=== PATIENT | male | born 1990 | race African-American/Black ===

== ENCOUNTER 2019-06-23 07:49 | Observation (INO) ==
[2019-06-23] MEDS ORDERED: MOM Conc 10 ML UD.LIQ PO PRN (10:39)
[2019-06-23] MEDS ORDERED: Ondansetron 4 MG/2 ML VIAL IVP PRN (10:39)
[2019-06-23] MEDS ORDERED: Acetaminophen 325 MG TABLET PO PRN (10:39)
[2019-06-23] MEDS ORDERED: *HR* OxyCODONE Immed Rel 5 MG TABLET PO PRN (10:39)
[2019-06-23] MEDS ORDERED: Naloxone 0.4 MG/ML INJ IVP PRN (10:39)
[2019-06-23] MEDS ORDERED: Mag Hydrox/Al Hydrox/Simeth 30 ML UDC PO PRN (10:39)
[2019-06-23] MEDS: Ketorolac 30 MG/ML VIAL IVP PRN ×2 (11:40→19:45)
[2019-06-23] MEDS: Ringers Solution, Lactated 1,000 ML IVC SCH (11:40)
[2019-06-24] MEDS: Ringers Solution, Lactated 1,000 ML IVC SCH ×2 (01:16→12:52)
[2019-06-24] MEDS: Ketorolac 30 MG/ML VIAL IVP PRN ×2 (01:48→18:20)
[2019-06-24 07:33] LABS: Hematocrit 42.8 % (37.5-50.1); Hemoglobin 14.1 g/dL (12.9-16.9); Mean Corpuscular HGB Conc 32.9 g/dL (31.6-35.5); Mean Corpuscular Hemoglobin 29.9 pg (28.0-33.3); Mean Corpuscular Volume 90.7 fL (83.0-100.0); Mean Platelet Volume 9.3 fL (9.4-12.4); Platelet Count 258 K/mcL (140-400); Red Blood Count 4.72 M/mcL (4.19-5.50); Red Cell Distribution Width 13.1 % (11.5-14.5); White Blood Count 6.5 K/mcL (4.3-11.1)
[2019-06-24 07:54] LABS: BUN/Creatinine Ratio 15 (6-26); Blood Urea Nitrogen 12 mg/dL (6-20); Calcium 8.9 mg/dL (8.6-10.3); Carbon Dioxide 27 mEq/L (23-29); Chloride 102 mEq/L (98-107); Glucose 111 mg/dL (70-105); Magnesium 1.8 mg/dL (1.6-2.6); Osmolality,Calculated 288 (280-300); Potassium 3.8 mEq/L (3.5-5.1); Sodium 139 mEq/L (136-145); eGFR For African Americans > 60 (> 60); eGFR For Non-African Americans > 60 (> 60)
[2019-06-24] MEDS ORDERED: Ondansetron 4 MG/2 ML VIAL ONE (09:56)
[2019-06-24] MEDS ORDERED: *HR* Succinylcholine 200 MG/10 ML VIAL IVP ONE (09:56)
[2019-06-24] MEDS ORDERED: Dexamethasone 4 MG/ML VIAL ONE (09:56)
[2019-06-24] MEDS ORDERED: Lidocaine -MPF 2% 2 ML VIAL ONE (09:56)
[2019-06-24] MEDS ORDERED: *HR* FentaNYL (PF) 100 MCG/2 ML VIAL ONE (09:56)
[2019-06-24] MEDS ORDERED: *HR* Propofol 200 MG/20 ML VIAL IVP ONE ×2 (09:57→10:58)
[2019-06-24] MEDS ORDERED: *HR* Midazolam HCl 2 MG/2 ML VIAL ONE (10:32)
[2019-06-24] MEDS ORDERED: Isovue-300 50ML VIAL ONE (10:38)
[2019-06-24] MEDS ORDERED: Ketorolac 30 MG/ML VIAL IVP ONE (11:10)
[2019-06-24] MEDS ORDERED: Morphine Sulfate Oral CONC 10 MG/0.5 ML ORAL.SYG SL PRN (11:10)
[2019-06-24] MEDS ORDERED: *HR* FentaNYL (PF) 100 MCG/2 ML VIAL IVP PRN (11:10)
[2019-06-24] MEDS ORDERED: *HR* Promethazine 25 MG/ML VIAL IVP PRN (11:10)
[2019-06-24] MEDS ORDERED: *HR* Labetalol 20 MG/4 ML SYRINGE IVP PRN (11:10)
[2019-06-24] MEDS ORDERED: Acetaminophen IV 1,000 MG/100 ML INFUS..BTL IVPB ONE (11:10)
[2019-06-24] MEDS ORDERED: Albuterol 2.5 MG/3 ML NEBULIZER IH ONE ×2 (11:10→12:42)
[2019-06-24] MEDS ORDERED: Ondansetron 4 MG/2 ML VIAL IVP ONE ×2 (11:10→12:42)
[2019-06-24] MEDS ORDERED: CeFAZolin Syr 2,000MG/20 ML 2,000 MG/20 ML SYRINGE IVPB ONE (11:10)
[2019-06-24] MEDS ORDERED: EPHEDrine 50 MG/ML VIAL ONE (11:17)
[2019-06-24] MEDS ORDERED: Naloxone 0.4 MG/ML INJ IVP PRN (12:42)
[2019-06-24] MEDS ORDERED: MOM Conc 10 ML UD.LIQ PO PRN (12:42)
[2019-06-24] MEDS ORDERED: Ondansetron 4 MG/2 ML VIAL IVP PRN (12:42)
[2019-06-24] MEDS ORDERED: Mag Hydrox/Al Hydrox/Simeth 30 ML UDC PO PRN (12:42)
[2019-06-24] MEDS ORDERED: Acetaminophen 325 MG TABLET PO PRN (12:42)
[2019-06-24] MEDS ORDERED: ceFAZolin 2,000 MG in Water for inj. (sterile) 20 ML IVP ONE (12:42)
[2019-06-24] MEDS: *HR* OxyCODONE Immed Rel 5 MG TABLET PO PRN (14:13)
[2019-06-24] MEDS ORDERED: *HR* Belladonna Alkaloids/Opium 30 MG RECTAL SUPPOSITORY RC PRN (15:18)
[2019-06-25] MEDS: Ringers Solution, Lactated 1,000 ML IVC SCH (02:43)
[2019-06-25] MEDS: *HR* OxyCODONE Immed Rel 5 MG TABLET PO PRN (02:47)
[2019-06-25] MEDS: Ketorolac 30 MG/ML VIAL IVP PRN (05:47)
[2019-06-25 06:00] LABS: Basophils % 0.1 %; Hematocrit 42.7 % (37.5-50.1); Hemoglobin 14.4 g/dL (12.9-16.9); Immature Granulocytes % 0.5 % (0-4); Lymphocytes # 1.3 K/mcL (0.6-4.6); Lymphocytes % 11.4 %; Mean Corpuscular HGB Conc 33.7 g/dL (31.6-35.5); Mean Corpuscular Hemoglobin 29.9 pg (28.0-33.3); Mean Corpuscular Volume 88.6 fL (83.0-100.0); Monocytes # 0.8 K/mcL (0.0-1.3); Monocytes % 7.1 %; Neutrophils # 8.9 K/mcL (1.6-8.9); Platelet Count 285 K/mcL (140-400); Red Blood Count 4.82 M/mcL (4.19-5.50); Red Cell Distribution Width 12.7 % (11.5-14.5); Segmented Neutrophils % 80.9 %
[2019-06-25 06:21] LABS: BUN/Creatinine Ratio 13 (6-26); Blood Urea Nitrogen 10 mg/dL (6-20); Calcium 9.1 mg/dL (8.6-10.3); Carbon Dioxide 26 mEq/L (23-29); Chloride 103 mEq/L (98-107); Glucose 133 mg/dL (70-105); Osmolality,Calculated 289 (280-300); Potassium 4.1 mEq/L (3.5-5.1); Sodium 139 mEq/L (136-145); eGFR For African Americans > 60 (> 60); eGFR For Non-African Americans > 60 (> 60)
[2019-06-25 06:49] VITALS: BP 136/81
== END 2019-06-25 11:23 | disposition home or self-care (01) ==
LOC: 3ANU → SUATTDRO 10:03
PROVIDERS: ADMIT Internal Medicine; ATTEND Internal Medicine

== ENCOUNTER 2021-04-29 01:50 | Observation (INO) ==
[2021-04-29] MEDS ORDERED: Acetaminophen IV 1,000 MG/100 ML BAG IVPB ONE (04:54)
[2021-04-29] MEDS ORDERED: *HR* HYDROcodone/Acet 5/325 mg TABLET PO PRN (06:05)
[2021-04-29] MEDS ORDERED: Ondansetron 4 MG/2 ML VIAL IVP PRN (06:05)
[2021-04-29] MEDS ORDERED: Naloxone 0.4 MG/ML INJ IVP PRN (06:05)
[2021-04-29] MEDS ORDERED: Vancomycin 2,000 MG/520 ML IV.SOLN IVPB SCH (07:00)
[2021-04-29] MEDS: Acetaminophen 325 MG TABLET PO PRN ×2 (07:41→14:49)
[2021-04-29] MEDS ORDERED: Acyclovir 850 MG in D5% in Water 250 ML IVPB SCH (09:43)
[2021-04-29] MEDS ORDERED: cefTRIAXone 2,000 MG in Water for inj. (sterile) 20 ML IVP SCH (11:00)
[2021-04-29 16:02] LABS: Adenovirus Not Detected (Not Detect); Bordetella Pertussis Not Detected (Not Detect); Chlamydophila pneumoniae Not Detected (Not Detect); Coronavirus 229E Not Detected (Not Detect); Coronavirus HKU1 Not Detected (Not Detect); Coronavirus NL63 Not Detected (Not Detect); Coronavirus OC43 Not Detected (Not Detect); Human Metapneumovirus Not Detected (Not Detect); Human Rhinovirus/Enterovirus Not Detected (Not Detect); Influenza A Subtype 2009 H1 Not Detected (Not Detect); Influenza B Not Detected (Not Detect); Mycoplasma pneumoniae Not Detected (Not Detect); Parainfluenza Virus 1 Not Detected (Not Detect); Parainfluenza Virus 2 Not Detected (Not Detect); Parainfluenza Virus 3 Not Detected (Not Detect); Parainfluenza Virus 4 Not Detected (Not Detect); Respiratory Syncytial Virus Not Detected (Not Detect); SARS-CoV-2 Not Detected (Not Detect)
[2021-04-29] MEDS: amLODIPine 5 MG TABLET PO SCH (17:01)
[2021-04-29] MEDS ORDERED: Ketorolac 15 MG/ML VIAL IVP ONE (17:04)
[2021-04-29] MEDS ORDERED: Prochlorperazine 10 MG/2 ML VIAL IVP SCH (17:15)
[2021-04-30] MEDS: Acetaminophen 325 MG TABLET PO PRN ×2 (03:03→08:29)
[2021-04-30 05:11] LABS: Basophils % 0.3 %; Hematocrit 42.3 % (37.5-50.1); Hemoglobin 14.5 g/dL (12.9-16.9); Immature Granulocytes % 0.3 % (0-4); Lymphocytes # 0.9 K/mcL (0.6-4.6); Lymphocytes % 14.2 %; Mean Corpuscular HGB Conc 34.3 g/dL (31.6-35.5); Mean Corpuscular Hemoglobin 29.5 pg (28.0-33.3); Monocytes # 0.5 K/mcL (0.0-1.3); Monocytes % 8.7 %; Neutrophils # 4.6 K/mcL (1.6-8.9); Platelet Count 208 K/mcL (140-400); Red Blood Count 4.92 M/mcL (4.19-5.50); Red Cell Distribution Width 12.9 % (11.5-14.5); Segmented Neutrophils % 76.5 %
[2021-04-30 05:29] LABS: Alanine Aminotransferase 18 Units/L (7-52); Albumin/Globulin Ratio 1.3 (1.1-2.2); Alkaline Phosphatase 45 Units/L (34-104); Aspartate Amino Transferase 19 Units/L (13-39); BUN/Creatinine Ratio 10 (6-26); Bilirubin,Total 0.5 mg/dL (0.3-1.0); Blood Urea Nitrogen 8 mg/dL (6-20); Calcium 8.8 mg/dL (8.6-10.3); Carbon Dioxide 23 mEq/L (23-29); Chloride 100 mEq/L (98-107); Glucose 119 mg/dL (70-105); Osmolality,Calculated 279 (280-300); Potassium 3.5 mEq/L (3.5-5.1); Sodium 135 mEq/L (136-145); eGFR For African Americans > 60 (> 60); eGFR For Non-African Americans > 60 (> 60)
[2021-04-30] MEDS ORDERED: *HR* Enoxaparin 40 MG/0.4 ML SYRINGE SQ SCH (06:00)
[2021-04-30] MEDS: amLODIPine 5 MG TABLET PO SCH (08:14)
[2021-04-30 11:12] VITALS: BP 115/74
== END 2021-04-30 13:41 | disposition home or self-care (01) ==
LOC: 3BNU → SUATTDRO 04:15
PROVIDERS: ADMIT Family Medicine; ATTEND Registered Nurse